=== PATIENT | female | born 1960 | race Caucasian/White ===

== ENCOUNTER 2022-03-30 11:39 | Day surgery (SDC) | payer MEDICARE, MEDICAID ==
[~2022-03-30] VITALS: Ht 165.1 cm; Wt 145.2 kg
[~2022-03-30 11:39] MED LIST: ATOR-2 PO; BUPR-49 PO; BUSP5TAB20 PO; DICL100G31 TP; DOCU100C33 PO; FAMO20 PO; LISI20TA24 PO; LORA10TA7 PO; METH-659 PO; OM-31CAP3 PO; OMEP10 PO
[2022-03-30 12:30] LABS: COVID AG,FIA SOURCE NASAL SWAB
[2022-03-30] MEDS ORDERED: MIDAZOLAM HCL 2 MG/2 ML VIAL ONE (12:36)
[2022-03-30] MEDS ORDERED: FentaNYL CITRATE PF 100 MCG/2 ML VIAL ONE (12:37)
[2022-03-30] MEDS ORDERED: SODIUM CHLORIDE 0.9% 1,000 ML IV ONE (13:00)
[2022-03-30 14:16] LABS: GLUCOMETER DEV NAME(LOC) SDS.; GLUCOSE,POINT OF CARE 70 MG/DL (70-110)
[2022-03-30 14:36] LABS: GLUCOMETER DEV NAME(LOC) SDS.; GLUCOSE,POINT OF CARE 110 MG/DL (70-110)
== END 2022-03-30 16:30 | disposition home or self-care (01) ==
LOC: SURGERY 11:39
PROVIDERS: ATTEND Internal Medicine Gastroenterology
DX: K63.5 Polyp of colon (principal); K44.9 Diaphragmatic hernia without obstruction or gangrene; K29.70 Gastritis, unspecified, without bleeding; I10 Essential (primary) hypertension; E11.9 Type 2 diabetes mellitus without complications; K21.9 Gastro-esophageal reflux disease without esophagitis; Z88.6 Allergy status to analgesic agent; Z79.899 Other long term (current) drug therapy; Z98.890 Other specified postprocedural states; Z88.8 Allergy status to other drugs, medicaments and biological substances; Z20.822 Contact with and (suspected) exposure to COVID-19
CPT/HCPCS: 45380; 43239; 87426; 88342; 82962; 84702; 88305; C1769; C9803; J2250; J3010